=== PATIENT | female | born 1980 | race African-American/Black ===

== ENCOUNTER 2016-06-19 19:02 | Emergency (ER) | payer OTHER ==
[2016-06-19 19:20] VITALS: BP 112/75; PULSE 87; TEMP 98.1; BMI 30.4
--- NOTE | 2016-06-19 19:35 | PDOC ---
History of Present Illness - General Chief Complaint: Cold Symptoms Stated Complaint: BODYACHES/CONGESTION Time Seen by Provider: 06/19/16 19:29 History Source: Patient Exam Limitations: No Limitations - History of Present Illness Initial Comments: CHIEF COMPLAINT: 36 y/o afebrile female with no significant PMH c/o body aches , congestion and sore throat for the past 1 week. HISTORY OF PRESENT ILLNESS: The patient admits to a slight fever when the symptoms started but that has resolved. She does admit the symptoms are improving but her son was being seen so she decided to be seen. She denies chills, [place], n/v/d, CP, SOB, abd pain, hematuria, dysuria. She took motrin for pain with some relief. Vital signs on arrival are within normal limits. REVIEW OF SYSTEMS: GENERAL/CONSTITUTIONAL: +fever - resolved. No weakness. No weight change. HEAD, EYES, EARS, NOSE AND THROAT: No change in vision. No ear pain or discharge. +sore throat. CARDIOVASCULAR: No chest pain or shortness of breath. RESPIRATORY: No cough, wheezing, or hemoptysis. GASTROINTESTINAL: No abd pain, nausea, vomiting, diarrhea. GENITOURINARY: No dysuria, frequency, or change in urination. MUSCULOSKELETAL: No joint or muscle swelling or pain. No neck or back pain. SKIN: No rash or easy bruising. NEUROLOGIC: No headache, vertigo, loss of consciousness, or loss of sensation. PSYCHIATRIC: No depression or anxiety. ENDOCRINE: No increased thirst. No abnormal weight change. HEMATOLOGIC/LYMPHATIC: No anemia, easy bleeding, or history of blood clots. ALLERGIC/IMMUNOLOGIC: No hives or skin allergy. No latex allergy. PHYSICAL EXAM: GENERAL: The patient is awake, alert, and fully oriented, in no acute distress. SHe is very well appearing, ambulatory, in NAD or obvious discomfort. HEAD: Normal with no signs of trauma. No TTP of sinuses. ENT: Pupils equal, round and reactive to light, extraocular movements intact, sclera anicteric, conjunctiva clear. Neck supple. No tonsilar edema, erythema or exudate. LUNGS: Clear to auscultation bilaterally. Normal excursion. No respiratory distress or use of accessory muscles. CV: RRR, S1/S2, no MRG. Cap refill < 2 sec. ABDOMEN: Soft, non-distended, non-tender even to deep palpation, no hepatomegaly or splenomegaly, no masses. EXTREMITIES: Normal range of motion, no edema. NEUROLOGICAL: Normal speech, normal gait. CN II-XII grossly intact. PSYCH: Normal mood, normal affect. SKIN: Warm, dry, normal turgor, no rashes or lesions noted. Past History - Past Medical History Allergies/Adverse Reactions: Allergies Allergy/AdvReac Type Severity Reaction Status Date / Time No Known Allergies Allergy Verified 06/19/16 19:17 Home Medications: Ambulatory Orders NK [No Known Home Medication] 06/19/16 Other medical history: denies - Immunization History Td Vaccination: Yes (2 years ago) Immunization Up to Date: No (no flu) - Psycho/Social/Smoking Cessation Hx Anxiety: No Suicidal Ideation: No Smoking Status: No Smoking History: Current every day smoker Years of Tobacco Use: 15 Number of Cigarettes Smoked Daily: 20 Cigars Per Day: 0 Information on smoking cessation initiated: No 'Breaking Loose' booklet given: 08/10/14 Hx Alcohol Use: No Drug/Substance Use Hx: No *Physical Exam - Vital Signs Last Vital Signs Temp Pulse Resp BP Pulse Ox 98.1 F 87 20 112/75 100 06/19/16 19:17 06/19/16 19:17 06/19/16 19:17 06/19/16 19:17 06/19/16 19:17 Medical Decision Making - Medical Decision Making A/P: 36 y/o afebrile female with common cold/flu like symptoms. No need for flu swab as patient has had sxs for 1 week. Suggested she drink plenty of fluids and get lots of rest. Suggested she continue taking Motrin for pain. Suggested she f/u with her PCP within 1 week and return to the ER with any worsening or concerning symptoms. The patient verbalizes understanding of all instructions, has no further questions and is awaiting discharge. *DC/Admit/Observation/Transfer Diagnosis at time of Disposition: Body aches, Flu-like symptoms - Discharge Dispostion Disposition: HOME Condition at time of disposition: Good - Referrals Referrals: STAFF,NOT ON [Primary Care Provider] - - Patient Instructions Printed Discharge Instructions: DI for Cold Sores, Influenza Additional Instructions: Discharge Instructions: -Drink plenty of liquids and get lots of rest -Take Motrin if needed for fever/body aches -Follow up with your doctor within 1 week -Return to the ER with any worsening or concerning symptoms - Post Discharge Activity Work/School Note: Back to Work
== END 2016-06-19 19:50 | disposition home or self-care (01) ==
LOC: JERFT 19:02
DX: J11.1 Influenza due to unidentified influenza virus with other respiratory manifestations (principal); F17.210 Nicotine dependence, cigarettes, uncomplicated
CPT/HCPCS: 99281-25

== ENCOUNTER 2017-02-03 22:14 | Emergency (ER) | payer OTHER ==
[2017-02-03 22:19] VITALS: BP 113/61; PULSE 72; TEMP 98.9; BMI 33.1
[2017-02-03] MEDS ORDERED: DIPHTH,PERTUSS(ACELL),TET 0.5 ML DISP.SYRIN IM ONE (22:24)
--- NOTE | 2017-02-03 22:36 | PDOC ---
History of Present Illness - General Chief Complaint: Laceration Stated Complaint: FOOT INJURY Time Seen by Provider: 02/03/17 22:24 History Source: Patient Exam Limitations: No Limitations - History of Present Illness Initial Comments: 02/03/17 22:24 And fell striking left mcrae against edge of the stair incurring a 1 cm laceration to her superior left lower extremity. Has full range of motion of foot, no other injury. 02/03/17 22:36 Occurred: reports: just prior to arrival Severity: reports: mild Pain Location: reports: none Past History - Travel Traveled outside of the country in the last 30 days: No Close contact w/someone who was outside of country & ill: No - Past Medical History Allergies/Adverse Reactions: Allergies Allergy/AdvReac Type Severity Reaction Status Date / Time No Known Allergies Allergy Verified 02/03/17 22:16 Home Medications: Ambulatory Orders NK [No Known Home Medication] 06/19/16 - Immunization History Td Vaccination: Yes (2 years ago) Immunization Up to Date: No (no flu) - Psycho/Social/Smoking Cessation Hx Anxiety: No Suicidal Ideation: No Smoking Status: No Smoking History: Current every day smoker Years of Tobacco Use: 15 Number of Cigarettes Smoked Daily: 20 Cigars Per Day: 0 Information on smoking cessation initiated: No 'Breaking Loose' booklet given: 08/10/14 Hx Alcohol Use: No Drug/Substance Use Hx: No Trauma Specific PMHX - Complaint Specific PMHX Back Injury: No Neck Injury: No Review of Systems - Review of Systems Able to Perform ROS?: Yes Is the patient limited Citizen Of [place] proficient: Yes Constitutional: Yes: See HPI. No: Symptoms Reported Musculoskeletal: Yes: Symptoms Reported, See HPI Integumentary: Yes: Symptoms Reported, See HPI, Bruising, Other (1 cm lac ) All Other Systems: Reviewed and Negative *Physical Exam - Vital Signs Last Vital Signs Temp Pulse Resp BP Pulse Ox 98.9 F 72 18 113/61 100 02/03/17 22:17 02/03/17 22:17 02/03/17 22:17 02/03/17 22:17 02/03/17 22:17 - Physical Exam General Appearance: Yes: Nourished, Appropriately Dressed, Apparent Distress, Mild Distress HEENT: positive: MORALES, Normal ENT Inspection, TMs Normal, Pharynx Normal Neck: positive: Supple. 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 NML intact, Fully Oriented, Alert, Normal Mood/ Affect, Normal Response, Motor Strength 5/5 Procedures - Laceration/Wound Repair Left Leg Wound Length: to 2.5 cm Wound Explored: clean Wound's Depth, Shape: superficial, linear Irrigated w/ Saline: Yes Betadine Prep: Yes Wound Repaired With: Sutures Suture Size/Type: 5:0 Number of Sutures: 3 Layer Closure: No Sterile Dressing Applied: Yes Progress Note - Progress Note Progress Note: Leg laceration repaired *DC/Admit/Observation/Transfer Diagnosis at time of Disposition: Leg laceration Qualifiers: Encounter type: initial encounter Laterality: left Qualified Code(s): S81.812A - Laceration without foreign body, left lower leg, initial encounter - Discharge Dispostion Disposition: HOME Condition at time of disposition: Stable Admit: No - Patient Instructions Printed Discharge Instructions: DI for Laceration Repair Additional Instructions: Rest, elevate, avoid strenuous activity or heavy lifting until sutures are removed Leave dressing on for the next 24 hours, Then may remove dressing gently and wash area with soap and water. Reapply bacitracin ointment and dressing daily for the next 5 days On day #6 keep the wound protected and cover as needed until sutures are removed allowing wound to start to dry May use Tylenol or Motrin for pain relief Suture removal in : 12-14 Days Tetanus/Diphtheria/pertussis booster was updated today - Post Discharge Activity Work/School Note: Back to Work
== END 2017-02-03 22:36 | disposition home or self-care (01) ==
LOC: JERFT 22:14
PROC: 3E0234Z Introduction of Serum, Toxoid and Vaccine into Muscle, Percutaneous Approach (ICD-10-PCS; principal; 2017-02-03)
PROC: 0HQLXZZ Repair Left Lower Leg Skin, External Approach (ICD-10-PCS; 2017-02-03)
DX: S81.812A Laceration without foreign body, left lower leg, initial encounter (principal); W01.0XXA Fall on same level from slipping, tripping and stumbling without subsequent striking against object, initial encounter; Y93.89 Activity, other specified; Y92.89 Other specified places as the place of occurrence of the external cause; Y99.8 Other external cause status
CPT/HCPCS: 12001-25; 90471; 90715; 99281-25

== ENCOUNTER 2017-06-15 07:45 | Emergency (ER) | payer OTHER ==
[2017-06-15 07:52] VITALS: BP 110/71; PULSE 87; TEMP 98.2; BMI 32.2
[2017-06-15] MEDS ORDERED: IBUPROFEN 600 MG TABLET (FP) PO ONE ×2 (08:27→08:30)
--- NOTE | 2017-06-15 08:40 | PDOC ---
History of Present Illness - General Chief Complaint: Respiratory Stated Complaint: FALL Time Seen by Provider: 06/15/17 08:19 History Source: Patient Exam Limitations: No Limitations - History of Present Illness Initial Comments: 06/15/17 08:31 Patient here with complaints of one week of runny nose, generalized body aches, moist nonproductive cough. States did not take temperature but felt hot and then cold with chills. Mother gave her [id number] medications and to 10 mg Percocets which patient took last night states slept well up-to-date has not taken any Tylenol or Motrin has continued cough and runny nose. Timing/Duration: reports: changing over time, getting worse Severity: reports: mild Associated Symptoms: reports: chest pain/soreness, cough, earache, fever/chills , muscle aches, nasal congestion, sore throat Past History - Travel Traveled outside of the country in the last 30 days: No Close contact w/someone who was outside of country & ill: No - Past Medical History Allergies/Adverse Reactions: Allergies Allergy/AdvReac Type Severity Reaction Status Date / Time No Known Allergies Allergy Verified 06/15/17 07:51 Home Medications: Ambulatory Orders NK [No Known Home Medication] 06/19/16 COPD: No Other medical history: denies - Immunization History Td Vaccination: Yes (2 years ago) Immunization Up to Date: No (no flu) - Suicide/Smoking/Psychosocial Hx Smoking Status: No Smoking History: Current every day smoker Years of Tobacco Use: 15 Number of Cigarettes Smoked Daily: 10 Cigars Per Day: 0 Information on smoking cessation initiated: No 'Breaking Loose' booklet given: 08/10/14 Hx Alcohol Use: No Drug/Substance Use Hx: No Review of Systems - Review of Systems Able to Perform ROS?: Yes Is the patient limited [place] proficient: Yes Constitutional: Yes: Symptoms Reported, See HPI, Chills, Fever, Loss of Appetite , Malaise HEENTM: Yes: Symptoms Reported, See HPI, Nose Congestion, Throat Pain Respiratory: Yes: Symptoms reported, See HPI, Cough (moist non productive ) : No: Symptoms Reported Musculoskeletal: Yes: Symptoms Reported, See HPI, Muscle Pain Neurological: Yes: See HPI, Headache All Other Systems: Reviewed and Negative *Physical Exam - Vital Signs Last Vital Signs Temp Pulse Resp BP Pulse Ox 98.2 F 87 18 110/71 100 01/06/18 07:48 06/15/17 07:48 06/15/17 07:48 06/15/17 07:48 06/15/17 07:48 - Physical Exam General Appearance: Yes: Nourished, Appropriately Dressed, Apparent Distress, Mild Distress HEENT: positive: MORALES (glassy ), TMs Normal, Pharynx Normal, Pharyngeal Erythema , Nasal Congestion (clear ), Rhinorrhea, Sinus Tenderness. negative: Tonsillar Exudate, Tonsillar Erythema Neck: positive: Supple, Lymphadenopathy (R), Lymphadenopathy (L). negative: Tender Respiratory/Chest: positive: Lungs Clear. negative: Normal Breath Sounds, Wheezing Gastrointestinal/Abdominal: positive: Normal Bowel Sounds, Soft. negative: Tender, Guarding, Rebound Musculoskeletal: positive: Normal Inspection. 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 *DC/Admit/Observation/Transfer Diagnosis at time of Disposition: Flu-like symptoms - Discharge Dispostion Disposition: HOME Condition at time of disposition: Stable Admit: No - Referrals Referrals: Margot Lara [Primary Care Provider] - - Patient Instructions Printed Discharge Instructions: DI for Viral Syndrome Additional Instructions: Rest, drink lots of fluids: Teas, water, soups, Pedialyte Saltwater gargles Steamy showers/seem to face break up mucus Avoid contact with others until fevers and cough resolved Lots of handwashing and good hygiene Continue [id number] medications for symptomatic relief Tylenol or Motrin for fever and pain Followup with private physician in one to 2 days as needed Return to emergency department for worsened symptoms, fevers, dehydration - Post Discharge Activity Forms/Work/School Notes: Back to Work
== END 2017-06-15 08:58 | disposition home or self-care (01) ==
LOC: JERFT 07:45
DX: J11.1 Influenza due to unidentified influenza virus with other respiratory manifestations (principal)
CPT/HCPCS: 99281-25

== ENCOUNTER 2022-01-29 15:40 | Emergency (ER) | payer SELFPAY ==
[2022-01-29 15:59] VITALS: BP 103/69; PULSE 101; RESP 19; TEMP 98.3; BMI 34.9
[2022-01-29] MEDS ORDERED: DEXAMETHASONE SOD PHOSPHATE 10 MG/1 ML VIAL PO ONE (17:12)
[2022-01-29] MEDS ORDERED: DEXAMETHASONE SOD PHOSPHATE 10 MG/1 ML VIAL ONE (17:28)
[2022-01-29 18:45] LABS: THROAT:GRP A STREP DETECTED (NOTDETECTED)
== END 2022-01-29 17:26 | disposition home or self-care (01) ==
LOC: JER 15:40
DX: J06.9 Acute upper respiratory infection, unspecified (principal)
CPT/HCPCS: 0241U-QW; 87651; 99283-25; J1100

== ENCOUNTER 2023-05-14 00:26 | Emergency (ER) | payer SELFPAY ==
[2023-05-14 00:40] VITALS: BP 110/69; PULSE 81; RESP 18; TEMP 98.4; BMI 33.3
[2023-05-14] MEDS ORDERED: diazePAM 5 MG TABLET ONE (00:51)
[2023-05-14] MEDS ORDERED: diazePAM 5 MG TABLET PO ONE (00:51)
[2023-05-14] MEDS ORDERED: predniSONE 20 MG TABLET (UD) PO ONE (00:51)
[2023-05-14] MEDS ORDERED: predniSONE 20 MG TABLET (UD) ONE (00:52)
== END 2023-05-14 01:18 | disposition home or self-care (01) ==
LOC: JERFT 00:26 → JER 00:26 → JERFT 01:18
DX: G54.3 Thoracic root disorders, not elsewhere classified (principal); M25.511 Pain in right shoulder; R20.2 Paresthesia of skin; R20.8 Other disturbances of skin sensation
CPT/HCPCS: 99283-25

== ENCOUNTER 2023-11-24 20:17 | Emergency (ER) | payer SELFPAY ==
[2023-11-24 20:28] VITALS: BP 108/69; PULSE 88; RESP 18; TEMP 99; BMI 32.6
[2023-11-24] MEDS ORDERED: ACETAMINOPHEN 325 MG TABLET (FP) ONE (20:58)
[2023-11-24] MEDS ORDERED: SILVER SULFADIAZINE 1% TOP CREAM 50 GM JAR TP ONE (20:58)
[2023-11-24] MEDS: ACETAMINOPHEN 325 MG TABLET (FP) PO ONE (21:03)
[2023-11-24] MEDS: SILVER SULFADIAZINE 1% TOP CREAM 50 GM JAR TP ONE (21:03)
[2023-11-24] MEDS ORDERED: BACITRACIN ZINC 15 GM TUBE TOPICAL OINTMENT ONE (21:08)
[2023-11-24] MEDS: BACITRACIN ZINC 15 GM TUBE TOPICAL OINTMENT TP ONE (21:10)
== END 2023-11-24 21:22 | disposition home or self-care (01) ==
LOC: JER 20:17
DX: T24.112A Burn of first degree of left thigh, initial encounter (principal); X12.XXXA Contact with other hot fluids, initial encounter; Y93.G3 Activity, cooking and baking
CPT/HCPCS: 99283-25